=== PATIENT | female | born 1990 | race Caucasian/White ===

== ENCOUNTER 2016-09-26 18:16 | Emergency (ER) | payer SELFPAY ==
[~2016-09-26] VITALS: Ht 149.9 cm; Wt 63.6 kg
[2016-09-26 18:37] VITALS: BP 121/82; PULSE 55; RESP 16; O2SAT 100
== END 2016-09-26 18:47 | disposition left against medical advice (07) ==
LOC: SED 18:16
DX: Z53.21 Procedure and treatment not carried out due to patient leaving prior to being seen by health care provider (principal)